=== PATIENT | female | born 1960 | race Caucasian/White ===

== ENCOUNTER → 2016-08-30 | Outpatient (CLI) | payer OTHER ==
[2016-09-02 00:07] LABS: ALTERNARIA ALTERNATA, IGE <0.10 kU/L (Class 0); AMERICAN ELM, IGE <0.10 kU/L (Class 0); ASPERGILLUS FUMIGATU, IGE <0.10 kU/L (Class 0); BERMUDA GRASS, IGE <0.10 kU/L (Class 0); BIRCH, COMMON SILVER IGE <0.10 kU/L (Class 0); CAT DANDER <0.10 kU/L (Class 0); CLADOSPORIUM HERBARU, IGE <0.10 kU/L (Class 0); D FARINAE MITE <0.10 kU/L (Class 0); D PTERONYSSINUS <0.10 kU/L (Class 0); IMMUNOGLOBULIN IgE 002170 14 IU/mL (0-100); MAPLE LEAF SYCAMORE, IGE <0.10 kU/L (Class 0); MAPLE/BOX ELDER, IGE <0.10 kU/L (Class 0); MOUSE URINE IGE <0.10 kU/L (Class 0); PECAN TREE (HICKORY) IGE <0.10 kU/L (Class 0); PENICILLIUM CHRYSOGENUM, IGE <0.10 kU/L (Class 0); ROUGH PIGWEED, IGE <0.10 kU/L (Class 0); SHEEP SORREL (DOCK), IGE <0.10 kU/L (Class 0); SHORT RAGWEED, IGE <0.10 kU/L (Class 0); TIMOTHY, IGE <0.10 kU/L (Class 0); WALNUT TREE, IGE <0.10 kU/L (Class 0); WHITE ASH, IGE <0.10 kU/L (Class 0); WHITE MULBERRY, IGE <0.10 kU/L (Class 0); WHITE OAK, IGE <0.10 kU/L (Class 0)
== END | disposition home or self-care (01) ==
LOC: RAD 16:06 → LAB 16:06
PROVIDERS: Family Medicine
DX: M19.011 Primary osteoarthritis, right shoulder (principal); M25.511 Pain in right shoulder

== ENCOUNTER → 2017-03-08 | Outpatient (CLI) | payer OTHER ==
[2017-03-08 07:11] LABS: BASO % 0.5 % (0.0-1.0); EOS # 0.1 10*3/uL (0.0-0.4); EOS % 1.7 % (1.0-4.0); HEMATOCRIT 41.3 % (37.0-47.0); HEMOGLOBIN 14.3 g/dl (12.0-16.0); LYMPH # 2.5 10*3/uL (1.3-4.4); MEAN CELL VOLUME 90.6 fl (81.0-99.0); MEAN CORPUSCULAR HGB 31.4 pg (27.0-31.0); MEAN CORPUSCULAR HGB CONC 34.6 g/dl (33.0-37.0); MEAN PLATELET VOLUME 10.1 fl (9.6-12.3); MONO # 0.4 10*3/uL (0.1-1.0); MONO % 6.3 % (3.0-9.0); NEUT # 2.8 10*3/uL (2.3-7.9); NEUT % 48.3 % (47.0-73.0); PLATELET COUNT AUTOMATED 335 10*3/uL (130-400); RED BLOOD COUNT 4.56 10*6/uL (4.10-5.10); RED CELL DISTRI WIDTH 12.3 % (0-14.5); WHITE BLOOD COUNT 5.8 10*3/uL (4.8-10.8)
[2017-03-08 07:27] LABS: HEMOGLOBIN A1c 5.3 % (4.8-5.6)
[2017-03-08 07:38] LABS: ALBUMIN 4.1 gm/dl (3.1-4.5); ALKALINE PHOSPHATASE 59 U/L (45-117); BILIRUBIN, TOTAL 0.5 mg/dl (0.2-1.0); BUN 14 mg/dl (7-24); CARBON DIOXIDE 27 mmol/L (21-32); CHLORIDE 107 mmol/L (98-107); CHOLESTEROL 172 mg/dL (<200); EST GLOM FILT AFRICAN AMERICAN > 60 ml/min; FREE T4 1.07 ng/dl (0.76-1.46); GLUCOSE 86 mg/dL (65-99); HDL CHOLESTEROL 79 mg/dl (40-60); LDL CHOLESTEROL 75 mg/dL (9-159); POTASSIUM 3.9 mmol/L (3.5-5.1); SGOT/AST 15 IU/L (3-35); SGPT/ALT 19 U/L (12-78); SODIUM 143 mmol/L (136-145); TOTAL PROTEIN 7.3 gm/dL (6.4-8.2); TRIGLYCERIDES 88 mg/dl (<150); VLDL CHOLESTEROL 18 mg/dL (6-40)
== END | disposition home or self-care (01) ==
LOC: LAB 06:54
PROVIDERS: Family Medicine
DX: F41.9 Anxiety disorder, unspecified (principal); E78.00 Pure hypercholesterolemia, unspecified; E55.9 Vitamin D deficiency, unspecified; R73.9 Hyperglycemia, unspecified

== ENCOUNTER → 2017-05-09 | Day surgery (SDC) | payer OTHER ==
[~2017-05-09] VITALS: Ht 170.1 cm; Wt 63.5 kg
[~2017-05-09] MED LIST: ALLEGRA ALLERGY60 M2 PO; XANAX1 MG PO
--- NOTE | ~2017-05-09 | O ---
[place], [place] OPERATIVE NOTE NAME: SUNITA PUENTE UNIT #: [id number] ROOM: DOCTOR: HARPREET DELATORRE MD BIRTHDATE: [birth year] DOS: 05/09/2017 PREOPERATIVE DIAGNOSIS: Right basal cell carcinoma of the upper right breast with a deep and lateral margin involvement. POSTOPERATIVE DIAGNOSES: Right basal cell carcinoma of the upper right breast with a deep and lateral margin involvement. OPERATION: Wide excision of the right breast skin basal cell carcinoma with frozen section being negative for all margins and particularly the deep one. SURGEON: Harpreet Delatorre MD and Raul Trevizo DO ANESTHESIA: MAC with 1% lidocaine local anesthetic. ESTIMATED BLOOD LOSS: Minimal. REPLACEMENTS: IV fluids and Toradol. COMPLICATIONS: There were no complications. CONDITION: The patient's condition to recovery stable. OPERATIVE SUMMARY: The patient was taken to the operating room in supine position. MAC anesthesia, prepped and draped in routine manner with injection of 7 mL of 1% lidocaine local around the operative site. An elliptical incision was made and the old scar from the previous office biopsy and more tissue with good margins was excised down to the subcutaneous tissue. This was sent for frozen section and subsequent analysis revealed no further involvement noted. The wound itself had a #3-0 chromic sutures placed in subcutaneous tissue, taking some of the tension off the skin and reapproximated the operative site and then the skin was closed with 3-0 Monocryl in a running manner. Steri-Strips and dressings were placed. Good hemostasis was noted. The patient was then awakened and transferred to recovery in satisfactory condition. [place], [place] OPERATIVE NOTE NAME: SUNITA PUENTE Norma UNIT #: [id number] ROOM: DOCTOR: HARPREET DELATORRE MD BIRTHDATE: [birth year] HARPREET DELATORRE MD CM:OPRECORD:OPERATIVE NOTE [id number] HARPREET DELATORRE MD 05/09/17 1151 interface
--- NOTE | ~2017-05-09 | WRIGHTHP ---
[place], [place] PATIENT HISTORY AND PHYSICAL EXAM NAME: SUNITA PUENTE [facility] #: [id number] UNIT #: [id number] ROOM: DOCTOR: HARPREET SANTIAGO MD BIRTHDATE: [birth year] DOS: DATE OF SURGERY: 05/09/2017 HISTORY OF PRESENT ILLNESS: This is a very pleasant 56-year-old white female 1, para 1, status post tubal ligation, who had a biopsy done of a lesion on the dorsal surface of the right breast on February 28. Report returned consistent with basal cell carcinoma with lateral and deep margin involvement. I explained to the patient that this is usually very nonaggressive disease with the deep margin involvement and the inability to follow this from that standpoint, we should do a little deeper and wider excision. The patient did agree with this and had the risks and benefits, indications, potential complications and alternatives were reviewed, understanding stated and consent signed. PAST MEDICAL HISTORY: Reveals history of HEBERT and uses Xanax on a p.r.n. basis for this. She has seasonal allergies. History of sinus infections. PAST SURGICAL HISTORY: She has had one and one vaginal delivery. She is also status post NovaSure tubal ligation, left ganglion cyst removal, heart catheterization, which revealed benign findings. Right rotator cuff and biceps tendon repair in 2013. SOCIAL HISTORY: She does not smoke, but has occasional glass of wine. MEDICATIONS: Claritin 10 mg p.r.n. for allergies, Mariana p.r.n. for allergies, fluticasone propionate 50 mcg p.r.n. for allergies. She takes multivitamin, ibuprofen 800 mg p.r.n. and finally Xanax 0.25 mg on a p.r.n. basis for anxiety. The patient also uses Temovate cream for lichen sclerosus and finally Estrace vaginal cream for atrophic vaginitis. REVIEW OF SYSTEMS: Otherwise stable. FAMILY HISTORY: Reveals her father and mother to be . Mom apparently had some form of cancer and hypertension, but is not listed in the office chart. Her maternal grandmother and 2 sisters had breast cancer. The patient's mammograms have all been negative. PHYSICAL EXAMINATION: GENERAL: Reveals a pleasant white female, 5 feet 7 inches, 146 pounds, BMI is 22.9. VITAL SIGNS: Blood pressure 110/70, oxygen sat normal at 100% and she has no sleep apnea issues. HEENT: Normal. NECK: Normal. LUNGS: Normal. CARDIAC: Normal. BREASTS: The right breast is pretty well healed at this time. The patient has been busy with a number of other things and has not been able to get back for this additional excisional biopsy until now. [place], [place] PATIENT HISTORY AND PHYSICAL EXAM [id number] UNIT #: [id number] ROOM: DOCTOR: HARPREET SANTIAGO MD BIRTHDATE: [birth year] ABDOMEN: Grossly intact. EXTREMITIES: Grossly intact. NEUROLOGIC: Grossly intact. GENITOURINARY: External genitalia, vagina, cervix, uterus and adnexa are all within normal limits. RECTAL: Deferred. ASSESSMENT: The patient with a basal cell carcinoma of the anterior chest/right breast with involvement of the lateral and deep margins. PLAN: On 05/09/2017, the patient will come to outpatient surgery for a wider and elliptical excision of this operative area and a frozen section will be done to be sure the margins are clear. HARPREET SANTIAGO MD CM:HISPHYS:PATIENT HISTORY AND PHYSICAL EXAMINATION [id number] HARPREET SANTIAGO MD 05/05/17 0538 interface
[2017-05-09 08:20] VITALS: BP 139/74
[2017-05-09 10:15] VITALS: BP 102/51
[2017-05-09 10:30] VITALS: BP 109/67
== END | disposition home or self-care (01) ==
LOC: SDC 03-28 14:00
DX: C44.511 Basal cell carcinoma of skin of breast (principal); F41.9 Anxiety disorder, unspecified; Z98.51 Tubal ligation status; Z79.899 Other long term (current) drug therapy

== ENCOUNTER → 2019-06-14 | Outpatient (CLI) | payer BC ==
[2019-06-14 08:07] LABS: BASO % 0.4 % (0.0-1.0); EOS # 0.2 10*3/uL (0.0-0.4); EOS % 2.4 % (1.0-4.0); HEMATOCRIT 41.1 % (37.0-47.0); HEMOGLOBIN 13.5 g/dl (12.0-16.0); LYMPH # 2.3 10*3/uL (1.3-4.4); LYMPH % 34.6 % (27.0-41.0); MEAN CELL VOLUME 92.6 fl (81.0-99.0); MEAN CORPUSCULAR HGB 30.4 pg (27.0-31.0); MEAN CORPUSCULAR HGB CONC 32.8 g/dl (33.0-37.0); MEAN PLATELET VOLUME 10.2 fl (9.6-12.3); MONO # 0.6 10*3/uL (0.1-1.0); MONO % 8.8 % (3.0-9.0); NEUT # 3.6 10*3/uL (2.3-7.9); NEUT % 53.5 % (47.0-73.0); PLATELET COUNT AUTOMATED 368 10*3/uL (130-400); RED BLOOD COUNT 4.44 10*6/uL (4.10-5.10); RED CELL DISTRI WIDTH 12.5 % (0-14.5); WHITE BLOOD COUNT 6.7 10*3/uL (4.8-10.8)
[2019-06-14 08:35] LABS: ALBUMIN 3.8 gm/dl (3.1-4.5); ALKALINE PHOSPHATASE 56 U/L (45-117); BUN 17 mg/dl (7-24); CHLORIDE 113 mmol/L (98-107); CHOLESTEROL 187 mg/dL (<200); CREATININE 0.88 mg/dL (0.55-1.02); FREE T4 0.99 ng/dl (0.76-1.46); HDL CHOLESTEROL 64 mg/dl (40-60); LDL CHOLESTEROL 105 mg/dL (9-159); SGOT/AST 16 IU/L (3-35); SGPT/ALT 26 U/L (12-78); SODIUM 144 mmol/L (136-145); TOTAL PROTEIN 7.3 gm/dL (6.4-8.2); TRIGLYCERIDES 91 mg/dl (<150); VLDL CHOLESTEROL 18 mg/dL (6-40)
== END | disposition home or self-care (01) ==
LOC: LAB 06:52
PROVIDERS: Family Medicine
DX: Z00.00 Encounter for general adult medical examination without abnormal findings (principal)

== ENCOUNTER → 2021-07-28 | Outpatient (CLI) | payer BC | END | disposition home or self-care (01) | LOC: COVID19 17:04 | PROVIDERS: ATTEND Internal Medicine | DX: Z11.52 Encounter for screening for COVID-19 (principal) ==

== ENCOUNTER → 2021-08-03 | Outpatient (CLI) | payer BC | END | disposition home or self-care (01) | LOC: COVID19 16:29 | PROVIDERS: ATTEND Internal Medicine | DX: U07.1 COVID-19 (principal) ==

== ENCOUNTER → 2022-09-29 | Outpatient (CLI) | payer BC ==
[2022-09-29 07:28] LABS: BASO % 0.4 % (0.0-1.0); EOS # 0.1 10*3/uL (0.0-0.4); EOS % 2.5 % (1.0-4.0); LYMPH # 2.4 10*3/uL (1.3-4.4); LYMPH % 41.8 % (27.0-41.0); MEAN CELL VOLUME 92.4 fl (81.0-99.0); MEAN CORPUSCULAR HGB 30.9 pg (27.0-31.0); MEAN CORPUSCULAR HGB CONC 33.5 g/dl (33.0-37.0); MEAN PLATELET VOLUME 9.6 fl (9.6-12.3); MONO # 0.4 10*3/uL (0.1-1.0); MONO % 7.8 % (3.0-9.0); NEUT # 2.7 10*3/uL (2.3-7.9); NEUT % 47.3 % (47.0-73.0); PLATELET COUNT AUTOMATED 341 10*3/uL (130-400); RED BLOOD COUNT 4.33 10*6/uL (4.10-5.10); RED CELL DISTRI WIDTH 12.5 % (0-14.5); WHITE BLOOD COUNT 5.7 10*3/uL (4.8-10.8)
[2022-09-29 08:03] LABS: ALKALINE PHOSPHATASE 53 U/L (46-116); BUN 18 mg/dl (9-23); CHLORIDE 106 mmol/L (98-107); CHOLESTEROL 189 mg/dL (<200); LDL CHOLESTEROL 111 mg/dL (9-159); POTASSIUM 4.8 mmol/L (3.4-5.1); SGPT/ALT 19 U/L (10-49); TOTAL PROTEIN 7.2 gm/dL (6.0-8.0); TRIGLYCERIDES 76 mg/dl (<150)
== END | disposition home or self-care (01) ==
LOC: LAB 07:06
PROVIDERS: ATTEND Family Medicine
DX: Z00.00 Encounter for general adult medical examination without abnormal findings (principal); R53.83 Other fatigue